=== PATIENT | female | born 1990 | race African-American/Black ===

== ENCOUNTER 2016-11-19 09:29 | Emergency (ER) | payer OTHER ==
[~2016-11-19 09:29] MED LIST: ACYCLOVIR400 MG PO; BACTRIM DS TABL1 TA2 PO; CIPRO PO; ELIMITE60 GM TOP; FLAGYL PO; NO MEDICATIONS; PHENERGAN25 MG PO; PREDNISONE PO; PRENATAL1 TA1; PRENATAL1 TA1 PO; PYRIDIUM PO; PYRIDIUM100 MG PO; ZOFRANODT PO; ZOVIRAX; ZOVIRAX400 MG PO; ZOVIRAX800 MG PO
[2016-11-19 10:13] LABS: URINE SOURCE CLEAN CATCH
[2016-11-19 10:42] LABS: BASOPHIL% 0.4 % (0-2.5); EOSINOPHIL% 0.3 % (0.0-7.0); HEMATOCRIT 37.8 % (35.0-45.0); HEMOGLOBIN 12.2 gm/dL (12.0-16.0); LYMPHOCYTE# 1.1 X10e3 (1.0-3.5); LYMPHOCYTE% 10.2 % (17.0-45.0); MEAN CELL VOLUME 85.8 FL (83-96); MEAN CORPUSCULAR HEMOGLOBIN 27.7 PG (28-34); MEAN CORPUSCULAR HGB CONC 32.3 g/dL (30-36); MEAN PLATELET VOLUME 8.4 FL (6.5-11.5); MONOCYTE# 0.8 X10e3 (0-1.0); NEUTROPHIL# 9.1 X10e3 (1.5-7.1); NEUTROPHIL% 82.1 % (40-75); PLATELET COUNT 221 X10e3 (140-420); RED BLOOD COUNT 4.41 X10e (3.90-5.30); RED CELL DISTRIBUTION WIDTH 13.1 % (11.0-15.5)
[2016-11-19 10:43] LABS: URINE APPEARANCE CLEAR; URINE BILIRUBIN NEG (NEG); URINE BLOOD 2+ (NEG); URINE COLOR YELLOW; URINE GLUCOSE NEG (NEG); URINE KETONE NEG (NEG); URINE LEUKOCYTE ESTERASE NEG (NEG); URINE NITRATE NEG (NEG); URINE PROTEIN NEG (NEG); URINE SPECIFIC GRAVITY 1.019 (1.003-1.035)
[2016-11-19 10:44] LABS: DIFF IND NO
[2016-11-19 10:46] LABS: CULTURE INDICATED? YES; URINE BACTERIA AUWI 1+ (NEGATIVE); URINE SQUAMOUS EPITHELIAL CELL FEW /[HPF]; UWBCS1 AUWI 0-2 (0-5)
[2016-11-19 11:08] LABS: BILIRUBIN,TOTAL 0.7 mg/dL (0.2-2.0); CALCIUM SERUM 8.8 mg/dL (8.4-10.2); CREATININE SERUM 0.6 mg/dL (0.6-1.4); GLOM FILT RATE Estimated 143.8 mL/min (>60); POTASSIUM 3.4 mmol/L (3.5-5.1); PROTEIN TOTAL SERUM 6.8 g/dL (6.0-8.3)
== END 2016-11-19 12:07 | disposition home or self-care (01) ==
LOC: CFTX 09:29 → CED 09:29 → CFTX 10:27
PROVIDERS: Nurse Practitioner
DX: N93.9 Abnormal uterine and vaginal bleeding, unspecified (principal); Z98.890 Other specified postprocedural states
CPT/HCPCS: 80053; 81003; 84703; 85025; 87086; 96372; 99284; J1885

== ENCOUNTER 2016-11-23 13:00 | Emergency (ER) | payer OTHER | END 2016-11-23 14:09 | disposition home or self-care (01) | LOC: CED 13:00 → CFTX 13:00 | DX: J02.9 Acute pharyngitis, unspecified (principal) | CPT/HCPCS: 87651; 99282 ==